=== PATIENT | female | born 1990 | race Caucasian/White ===

== ENCOUNTER 2019-12-28 16:11 | Emergency (ER) ==
[2019-12-28 16:19] VITALS: BP 138/98
== END 2019-12-28 16:54 | disposition left against medical advice (07) ==
LOC: ER 16:11
DX: Z53.21 Procedure and treatment not carried out due to patient leaving prior to being seen by health care provider (principal)

== ENCOUNTER 2019-12-29 05:42 | Emergency (ER) | payer SELFPAY ==
[2019-12-29] MEDS ORDERED: NORMAL SALINE 1000 ML 1,000 ML IV PRN (06:06)
[2019-12-29] MEDS ORDERED: ONDANSETRON HCL INJ/PF 4 MG/2 ML SDV IV ONE ×3 (06:07→13:04)
[2019-12-29 06:40] LABS: ABSOLUTE BASOPHILS # (AUTO) 0.1 10^3/uL (0.0-0.2); ABSOLUTE LYMPHOCYTES (AUTO) 2.3 10^3/uL (0.5-4.7); ABSOLUTE MONOCYTES (AUTO) 0.4 10^3/uL (0.1-1.4); ABSOLUTE NEUT (AUTO) 2.9 10^3/uL (1.7-8.2); EOSINOPHILS % (AUTO) 0.7 % (0-6); HEMATOCRIT 44.1 % (36.0-47.0); HEMOGLOBIN 15.2 g/dL (12.0-15.5); LYMPHOCYTES % (AUTO) 40.2 % (13-45); MEAN CORPUSCULAR HEMOGLOBIN 32.6 pg (27.0-33.4); MEAN CORPUSCULAR HGB CONC 34.5 g/dL (32.0-36.0); MEAN CORPUSCULAR VOLUME 95 fl (80-97); MONOCYTES % (AUTO) 6.6 % (3-13); PLATELET COUNT 278 10^3/uL (150-450); RED BLOOD COUNT 4.67 10^6/uL (3.72-5.28); RED CELL DISTRIBUTION WIDTH 13.2 % (11.5-14.0); SEGMENTED NEUTROPHILS % (AUTO) 51.5 % (42-78); TOTAL CELLS COUNTED % (AUTO) 100 %; WHITE BLOOD COUNT 5.6 10^3/uL (4.0-10.5)
[2019-12-29 06:43] LABS: APPEARANCE,URINE CLEAR; BILIRUBIN,URINE NEGATIVE (NEGATIVE); COLOR,URINE COLORLESS; GLUCOSE, URINE NEGATIVE (NEGATIVE); KETONES,URINE NEGATIVE (NEGATIVE); LEUKOCYTE ESTERASE,URINE NEGATIVE (NEGATIVE); NITRITE,URINE NEGATIVE (NEGATIVE); PROTEIN,URINE NEGATIVE (NEGATIVE); UROBILINOGEN,URINE NEGATIVE mg/dL (<2.0)
[2019-12-29 06:56] LABS: URINE AMPHETAMINES SCREEN NEGATIVE; URINE BARBITURATES SCREEN NEGATIVE; URINE BENZODIAZEPINES SCREEN NEGATIVE; URINE COCAINE SCREEN NEGATIVE; URINE MARIJUANA (THC) SCREEN NEGATIVE; URINE METHADONE SCREEN NEGATIVE; URINE PHENCYCLIDINE SCREEN NEGATIVE
[2019-12-29 07:01] LABS: ALCOHOL 235 mg/dL (NONE DETECTED); ALKALINE PHOSPHATASE 60 U/L (38-126); ANION GAP 16 (5-19); ASPARTATE AMINO TRANSFERASE 58 U/L (14-36); BILIRUBIN,TOTAL 0.8 mg/dL (0.2-1.3); CALCIUM 8.9 mg/dL (8.4-10.2); CARBON DIOXIDE 26 mmol/L (22-30); CHLORIDE 89 mmol/L (98-107); GLUCOSE 93 mg/dL (75-110); POTASSIUM 3.8 mmol/L (3.6-5.0); TOTAL PROTEIN 8.5 g/dL (6.3-8.2)
[2019-12-29 07:11] LABS: BLOOD UREA NITROGEN < 2 mg/dL (7-20)
--- NOTE | 2019-12-29 08:05 | EKG REPORT ---
SEVERITY:- OTHERWISE NORMAL ECG - SINUS TACHYCARDIA BORDERLINE RIGHT AXIS DEVIATION : Confirmed by: Tika Marr 29-Dec-2019 08:05:25
[2019-12-29] MEDS ORDERED: DIPHENHYDRAMINE HCL 50 MG/ML VIAL IV ONE (08:36)
[2019-12-29] MEDS ORDERED: DEXTROSE 5%-LACTATED RINGERS 1,000 ML IV ONE (08:36)
--- NOTE | 2019-12-29 08:52 | ER Document Report ---
Entered by CHANELLE SHEARER SCRIBE 12/29/19 0838 Acting as scribe for:MADELYN CASTORENA MD ED Substance Abuse / Acc. OD - General Chief Complaint: Alcohol Withdrawl Stated Complaint: ALCOHOL WITHDRAWEL Time Seen by Provider: 12/29/19 08:16 Mode of Arrival: Ambulatory Information source: Patient Notes: This 29-year-old female patient presents to the emergency department today with concerns of alcohol withdrawal. Patient states that she had been sober for about 6 months but this weekend she came to the area from [facility] to visit her boyfriend who drinks heavily. Patient began drinking this weekend and has been binge drinking for the last 48 hours. Patient states she has been drinking white claws and twisted teas. Patient noticed that she vomited blood yesterday and she has also noticed blood in her stool. She also reports that her boyfriend broke up with her telling her he wanted her to get assistance with her drinking problem. The patient filled a prescription for clonazepam and trazodone 12 days ago. She received a 20-day prescription according to pharmacy records. She states that this was through a tele-doc type visit. More of her social history is that she lives with her father in [facility], and he drinks a lot which is a bad influence on her and she has told him so. She was staying with an aunt, but her grandmother moved in and they felt that she should not be in the house with the elderly grandmother due to COVID exposure potential. She came down here this weekend to be with her boyfriend who it seems like after a weekend of heavy alcohol abuse, he asked her to leave. - Related Data Allergies/Adverse Reactions: Penicillins Allergy (Verified 12/29/19 05:49) Past Medical History - General Information source: Patient - Social History Smoking Status: Current Some Day Smoker Cigarette use (# per day): Yes Chew tobacco use (# tins/day): No Frequency of alcohol use: Heavy Drug Abuse: None Lives with: Family Family History: Reviewed & Not Pertinent Patient has homicidal ideation: No Review of Systems - Review of Systems Constitutional: See HPI, Other - possible EtOH withdrawal EENT: No symptoms reported Cardiovascular: No symptoms reported Respiratory: No symptoms reported Gastrointestinal: See HPI, Blood in vomit, Rectal bleeding Genitourinary: No symptoms reported Female Genitourinary: No symptoms reported Musculoskeletal: No symptoms reported Skin: No symptoms reported Hematologic/Lymphatic: No symptoms reported Neurological/Psychological: No symptoms reported -: Yes All other systems reviewed and negative Physical Exam - Vital signs Vitals: Temp Pulse Resp BP Pulse Ox 98.3 F 125 H 20 146/97 H 98 12/29/19 05:47 12/29/19 05:47 12/29/19 05:47 12/29/19 05:47 12/29/19 05:47 - Notes Notes: Physical Exam: General: Alert, appears well. HEENT: Normocephalic. Atraumatic. PERRL. Extraocular movements intact. Oropharynx clear. Neck: Supple. Non-tender. Respiratory: No respiratory distress. Clear and equal breath sounds bilaterally. Cardiovascular: Regular rate and rhythm. Abdominal: Normal Inspection. Non-tender. No distension. Normal Bowel Sounds. Back: No gross abnormalities. Extremities: Moves all four extremities. Upper extremities: Normal inspection. Normal ROM. Lower extremities: Normal inspection. No edema. Normal ROM. Neurological: Normal cognition. AAOx4. Normal speech. Psychological: Normal affect. Normal Mood. Skin: Warm. Dry. Normal color. Course - Re-evaluation Re-evalutation: 12/29/19 14:42 I attempted to discharge patient, she is complaining about shaking and wants something for her shaking and nurse. We had another long discussion about the fact that she could not have been in alcohol withdrawal with an alcohol level of 235. She also would not have gone into alcohol withdrawal after drinking for only 2 days when she had been sober for 6 months as she claimed. She did admit that it might be her nerves. I informed her that we will not provide her with benzodiazepine drugs. I noted she had received hydroxyzine in the past, she stated that that made her feel worse and did not want to take it. She keeps begging for something for her nerves and to make her feel better. She will be given a single dose of clonidine 0.1 mg, and discharged with a prescription for Zofran. She did feel a 20-day prescription for clonazepam and trazodone 12 days ago that she received by doing a telemetry psych visit. - Vital Signs Vital signs: Temp Pulse Resp BP Pulse Ox 98.3 F 125 H 16 126/86 H 98 12/29/19 05:47 12/29/19 05:47 12/29/19 12:30 12/29/19 12:30 12/29/19 11:01 - Laboratory Result Diagrams: 12/29/19 06:17 12/29/19 06:17 Laboratory results interpreted by me: 12/29/19 12/29/19 06:17 06:17 Sodium 131.1 L Chloride 89 L BUN < 2 L AST 58 H Total Protein 8.5 H Urine Blood SMALL H - EKG Interpretation by Me EKG shows normal: Sinus rhythm, [place], Intervals, QRS Complexes, ST-T Waves Rate: Tachycardia - 111 [place]/QRS: Right axis deviation When compared to previous EKG there are: Previous EKG unavailable Discharge - Discharge Clinical Impression: Alcohol abuse Nausea and vomiting Qualifiers: Vomiting type: unspecified Vomiting Intractability: non-intractable Qualified Code(s): R11.2 - Nausea with vomiting, unspecified Condition: Stable Disposition: HOME, SELF-CARE Additional Instructions: Acute Alcohol Intoxication Your evaluation revealed very high levels of alcohol. You can from drinking a large amount of alcohol rapidly! Further, there's the risk of falls, traffic accidents, and fights. A high portion (about 50 percent) of the serious injuries seen in hospital emergency rooms are caused by alcohol. Alcohol overdosage is usually due to an underlying emotional or psychiatric problem. You may benefit from counselling. If "binge" drinking is an ongoing problem for you, or if you drink ANY AMOUNT of alcohol EVERY day, you most likely have a tendency to alcoholism. You should avoid alcohol totally. We can refer you for treatment. Persons with alcohol problems are often also prone to other addictions -- you should discuss any use of medications or drugs with the doctor. You should be watched at home for the next several hours by someone who has not been drinking. Get extra fluids for the next 24 hours. Call the doctor if there is repeated vomiting, increasing headache, decreasing level of alertness, or any other worsening. You are being discharged with a prescription for Zofran to help with your nauseousness today. You should drink cool clear liquids and rest. The behavioral health team is provided you with a local resources for alcohol abuse. You should follow-up with them, or with your providers back home in the [facility]. RETURN TO THE EMERGENCY ROOM IF ANY NEW OR WORSENING SYMPTOMS. Prescriptions: Ondansetron [Zofran Odt 4 mg Tablet] 1 - 2 tab PO Q4H PRN #10 tab.rapdis PRN Reason: I personally performed the services described in the documentation, reviewed and edited the documentation which was dictated to the scribe in my presence, and it accurately records my words and actions.
[2019-12-29] MEDS ORDERED: PANTOPRAZOLE SODIUM 40 MG VIAL IV ONE (13:04)
[2019-12-29] MEDS ORDERED: ONDANSETRON ODT 4 MG TAB (6 TAB/ER DISP) PO PRN (14:05)
[2019-12-29] MEDS ORDERED: CLONIDINE HCL 0.1 MG TABLET PO ONE (14:44)
[2019-12-29 15:18] VITALS: BP 121/81
--- NOTE | 2019-12-30 09:50 | PSYCHOLOGICAL NOTE ---
Psych Note - Psych Note Date seen by psych provider: 12/29/19 Time seen by psych provider: 13:36 - [id number] Psych Note: Presenting Problem: Patient is a 29 year old female who presented to the [facility] ED cash reconciliation specialist via POV for alcohol withdrawal. Medical documentation noted patient reported history of alcohol abuse, had been sober for 6 month with one relapse until a few days ago, has been drinking heavily the past several days (yesterday had 6 pack of White Claws and two 24 ounce cans of Twisted Tea), she started having tremors last night/dark tarry stool with some bright red blood/vomiting blood so came to hospital. Serum Alcohol Level was 235 upon arrival to the ED. Patient identified she was visiting a boyfriend in this area who kicked her out due to her drinking. Observed cuts, scraps and bruising to face and eyes. Patient stated "I was drunk and fell down stairs." Patient acknowledged when she drinks she does not eat so has not had much of anything the past 4 days. She identified she has been to [facility] for treatment and described it as a neg ative experience. She stated she went to [facility] to obtain outpatient and at second session they informed her they don't accept her insurance. She identified her medication provider is [facility] in [facility] (where she is from, father and brother reside there) and last week had a telemed due to poor sleep so Trazodone was added as needed for sleep. She reported she is also prescribed Lamictal 100MG daily for mood and takes Microgestin for Control. Patient talked about trying to maintain her pulse, concerns for her shaking and how the medication she was just given for nausea really helped. Patient stated she had resided with her Aunt who lives an hour from father which is how she was able to get sober (Aunt does not drink or allow alcohol in the home) but Aunt takes care of grandmother so when COVID started they agreed since patient was still working (an hour away) for grandmother's medical safety patient should move out. She stated she went back to her father's but he has given her beer before saying weening is what helps but that is not the case for her because she is unable to ration like that. Patient noted family history of alcohol use when she mentioned her brother is now clean and said he would do AA with her. Patient denied suicidal and homicidal ideation. Her main concern was her shaking. She stated she is supposed to start a new job tomorrow and wanted to be better to do that. She acknowledged she had utilized reading journaling and going to the Gym to workout as ways to help her stay sober previously. Patient was alert and oriented to self, person, place, time and situation. Mood was euthymic with congruent affect. She denied current suicidal and homicidal ideation. Patient did not appear to be responding to internal stimuli as evidenced by fair eye contact and answering questions appropriately when addressed. Thought processes were linear and organized. Conversational speech was within normal limits for rate, tone and prosody. Intellectual abilities are estimated to be average. Insight, judgment and impulse control were fair as evidenced by being engaged and providing information about her alcohol use, treatments or attempted treatments and desire to be able to start new job tomorrow. Clinical Presentation: Alcohol Intoxication Impression/Plan: Patient is cleared from acute psychiatric services. Patient's concern was alcohol withdrawal. She stated her experience at [facility] had made her want to avoid detox facilities and mainly she wanted to get her shaking under control. It is felt the shaking could be from the alcohol (Twisted Teas) she drank which usually include caffeine and how she stated when she drinks she doesn't eat. Provided the substance abuse resource sheet which highlighted and documented [facility] for assistance with voluntary detox and treatment, listed [facility] as local but currently full and listed the other 5 detox facilities. She stated she has a male friend (since boyfriend kicked her out) locally who has her car and belonging and brought her to ED, he would provide transportation when she is discharged. Consulted with Dr. Merrill regarding the management and care of patient. ED Physician in agreement with recommendations.
== END 2019-12-29 15:16 | disposition home or self-care (01) ==
LOC: ER 05:42
DX: F10.10 Alcohol abuse, uncomplicated (principal); Y90.7 Blood alcohol level of 200-239 mg/100 ml; K92.0 Hematemesis; K62.5 Hemorrhage of anus and rectum; R00.0 Tachycardia, unspecified; F17.210 Nicotine dependence, cigarettes, uncomplicated; Z88.0 Allergy status to penicillin
CPT/HCPCS: 93005; 96376; 99285; 96361; 96374; 96375; 36415; 80307 ×2; 84703; 85025; 82270; 80053; 81001; 93010; J1200; C9113; J2405; J7121; J7030